=== PATIENT | male | born 1940 | race Caucasian/White ===

== ENCOUNTER 2020-05-26 08:55 | Outpatient (REF) | payer MEDICARE, SELFPAY ==
[2020-05-26 11:17] LABS: Hematocrit 38.7 % (42-52); Hemoglobin 12.6 g/dl (14.0-18.0); Mean Corpuscular HGB Conc 32.6 g/dl (31.0-36.0); Mean Corpuscular Volume 92.1 fL (80-98); Mean Platelet Volume 12.8 fL (9.4-12.4); Platelet Count 147 X10*3/uL (160-400); Red Cell Distribution Width 13.8 % (11.0-16.0); White Blood Count 4.6 X10*3/uL (4.8-10.8)
[2020-05-26 11:59] LABS: Alanine Aminotransferase 15 U/L (0-40); Albumin Level 3.7 g/dL (3.5-5.0); Alkaline Phosphatase 55 U/L (39-117); Anion Gap 10 (12-20); Aspartate Amino Transferase 20 U/L (5-37); Bilirubin Total 0.5 mg/dL (0.0-1.0); Blood Urea Nitrogen 23 mg/dL (9-16); Calcium 8.8 mg/dL (8.4-10.2); Carbon Dioxide 27 mmol/L (22-29); Chloride 104 mmol/L (96-108); Estimated Glomerular Filt Rate 57; Glucose Random 91 mg/dL (60-115); Potassium 4.2 mmol/l (3.3-5.1); Sodium 137 mmol/L (135-145); Total Protein 5.9 g/dL (6.5-8.0)
[2020-05-26 12:21] LABS: Vitamin D 25-OH Total 36.6 ng/mL (>30)
== END 2020-05-26 08:56 | disposition home or self-care (01) ==
LOC: HO.MANLDS 08:55
PROVIDERS: PCP Internal Medicine; Visit Provider Internal Medicine
DX: E55.9 Vitamin D deficiency, unspecified (principal); I10 Essential (primary) hypertension
CPT/HCPCS: 36415; 80053; 82306; 85027

== ENCOUNTER 2022-05-28 09:25 | Outpatient (REF) | payer MEDICARE, SELFPAY ==
[2022-05-28 11:36] LABS: MANUAL DIFF FLAG NO
[2022-05-28 11:59] LABS: Basophils Percent Auto 0.8 % (0-2); Eosinophils Absolute Auto 0.2 X10*3/uL (0.0-0.4); Eosinophils Percent Auto 3.8 % (0-4); Hematocrit 36.1 % (42.0-52.0); Hemoglobin 12.3 g/dl (14.0-18.0); Imm Gran Abs Auto 0.01 X10*3/uL (0.00-0.03); Imm Gran Pct Auto 0.3 % (0.0-0.4); Lymphocytes Absolute Auto 0.8 X10*3/uL (1.2-4.9); Lymphocytes Percent Auto 19.6 % (20-40); Mean Corpuscular HGB Conc 34.1 g/dl (31.0-36.0); Mean Corpuscular Volume 90.9 fL (80.0-98.0); Mean Platelet Volume 13.4 fL (9.4-12.4); Monocytes Absolute Auto 0.3 X10*3/uL (0.1-1.2); Monocytes Percent Auto 7.7 % (2-11); Neutrophils Absolute Auto 2.7 x10*3/uL (2.0-8.3); Neutrophils Percent Auto 67.8 % (45-73); Platelet Count 122 X10*3/uL (160-400); Red Blood Count 3.97 X10*6/uL (4.60-5.80); Red Cell Distribution Width 15.3 % (11.0-16.0); White Blood Count 3.9 X10*3/uL (4.8-10.8)
[2022-05-28 12:33] LABS: Prostate Specific Antigen 0.56 ng/mL (<0.05-4.0); Thyroid Stimulating Hormone 1.95 uIU/mL (0.32-4.0); Vitamin D 25-OH Total 34.2 ng/mL (>30)
[2022-05-28 12:38] LABS: Vitamin B12 610 pg/mL (200-900)
[2022-05-28 12:46] LABS: Alanine Aminotransferase 16 U/L (0-40); Albumin Level 3.8 g/dL (3.5-5.0); Alkaline Phosphatase 64 U/L (39-117); Anion Gap 16 (12-20); Aspartate Amino Transferase 23 U/L (5-37); Blood Urea Nitrogen 21 mg/dL (9-16); Calcium 9.2 mg/dL (8.4-10.2); Carbon Dioxide 21 mmol/L (22-29); Chloride 103 mmol/L (96-108); Estimated Glomerular Filt Rate > 60; Glucose Random 101 mg/dL (60-115); Potassium 4.4 mmol/L (3.3-5.1); Sodium 136 mmol/L (135-145); Total Protein 6.1 g/dL (6.5-8.0)
== END 2022-05-28 09:26 | disposition home or self-care (01) ==
LOC: HO.MANLDS 09:25
PROVIDERS: Visit Provider Internal Medicine
DX: Z00.00 Encounter for general adult medical examination without abnormal findings (principal); Z12.5 Encounter for screening for malignant neoplasm of prostate
CPT/HCPCS: 36415; 80053; 82306; 82607; 84153; 84443; 85025

== ENCOUNTER 2022-12-28 10:01 | Outpatient (REF) | payer MEDICARE, SELFPAY ==
[2022-12-28 11:23] LABS: MANUAL DIFF FLAG NO
[2022-12-28 11:36] LABS: Basophils Percent Auto 0.6 % (0-2); Eosinophils Absolute Auto 0.2 X10*3/uL (0.0-0.4); Eosinophils Percent Auto 4.4 % (0-4); Hematocrit 36.3 % (42.0-52.0); Hemoglobin 12.3 g/dl (14.0-18.0); Imm Gran Abs Auto 0.01 X10*3/uL (0.00-0.03); Imm Gran Pct Auto 0.2 % (0.0-0.4); Lymphocytes Absolute Auto 0.9 X10*3/uL (1.2-4.9); Lymphocytes Percent Auto 17.6 % (20-40); Mean Corpuscular HGB Conc 33.9 g/dl (31.0-36.0); Mean Corpuscular Volume 88.5 fL (80.0-98.0); Monocytes Absolute Auto 0.4 X10*3/uL (0.1-1.2); Monocytes Percent Auto 8.4 % (2-11); Neutrophils Absolute Auto 3.4 x10*3/uL (2.0-8.3); Neutrophils Percent Auto 68.8 % (45-73); Platelet Count 129 X10*3/uL (160-400); Red Cell Distribution Width 14.4 % (11.0-16.0)
[2022-12-28 12:19] LABS: Alanine Aminotransferase 17 U/L (0-40); Albumin Level 3.6 g/dL (3.5-5.0); Alkaline Phosphatase 80 U/L (39-117); Anion Gap 9 (12-20); Aspartate Amino Transferase 23 U/L (5-37); Bilirubin Total 0.9 mg/dL (0.0-1.0); Blood Urea Nitrogen 23 mg/dL (9-16); Calcium 9.6 mg/dL (8.4-10.2); Carbon Dioxide 28 mmol/L (22-29); Chloride 101 mmol/L (96-108); Estimated Glomerular Filt Rate 59; Glucose Random 79 mg/dL (60-115); Iron 64 mcg/dL (45-160); Percent Iron Saturation 29 % (15-50); Potassium 4.3 mmol/L (3.3-5.1); Sodium 134 mmol/L (135-145); Total Iron Binding Capacity 218 mcg/dL (228-428); Total Protein 5.9 g/dL (6.5-8.0); Unsaturated Iron Binding 154 ug/dL
[2022-12-28 12:56] LABS: Ferritin 219 ng/mL (20-250); Folate > 20.0 ng/mL (> or = 4.0); Vitamin B12 742 pg/mL (200-900)
== END 2022-12-28 10:02 | disposition home or self-care (01) ==
LOC: HO.MANLDS 10:01
PROVIDERS: Visit Provider Physician Assistant
DX: I10 Essential (primary) hypertension (principal); D64.9 Anemia, unspecified
CPT/HCPCS: 36415; 80053; 82607; 82728; 82746; 83540; 85025

== ENCOUNTER 2023-01-04 | Outpatient (REF) | payer MEDICARE, SELFPAY ==
[2023-01-05 07:54] LABS: OBS1 NEGATIVE (NEGATIVE); OBS2 NEGATIVE (NEGATIVE); OBS3 NEGATIVE (NEGATIVE)
[2023-01-05 07:55] LABS: OBS Int Ctl Valid YES
== END 2023-01-04 00:01 ==
LOC: HO.MANLDS
PROVIDERS: Visit Provider Internal Medicine
DX: D64.9 Anemia, unspecified (principal)
CPT/HCPCS: 82270

== ENCOUNTER 2023-11-21 11:11 | Outpatient (REF) | payer MEDICARE, SELFPAY ==
[2023-11-21 14:13] LABS: Free T4 (Free Thyroxine) 0.87 ng/dL (0.71-1.85); Thyroid Stimulating Hormone 2.17 uIU/mL (0.32-4.0)
== END 2023-11-21 11:12 | disposition home or self-care (01) ==
LOC: HO.MANLDS 11:11
PROVIDERS: Visit Provider Physician Assistant
DX: Z79.899 Other long term (current) drug therapy (principal)
CPT/HCPCS: 36415; 84439; 84443

== ENCOUNTER 2024-11-06 11:37 | Outpatient (REF) | payer MEDICARE, SELFPAY ==
[2024-11-06 13:04] LABS: MANUAL DIFF FLAG NO
[2024-11-06 13:13] LABS: Basophils Percent Auto 0.5 % (0-2); Eosinophils Absolute Auto 0.1 X10*3/uL (0.0-0.4); Eosinophils Percent Auto 1.5 % (0-4); Hematocrit 38.5 % (42.0-52.0); Hemoglobin 13.4 g/dl (14.0-18.0); Imm Gran Abs Auto 0.02 X10*3/uL (0.00-0.03); Imm Gran Pct Auto 0.3 % (0.0-0.4); Lymphocytes Absolute Auto 1.3 X10*3/uL (1.2-4.9); Mean Corpuscular HGB Conc 34.8 g/dl (31.0-36.0); Mean Corpuscular Volume 91.9 fL (80.0-98.0); Monocytes Absolute Auto 0.6 X10*3/uL (0.1-1.2); Monocytes Percent Auto 9.4 % (2-11); Neutrophils Absolute Auto 3.9 x10*3/uL (2.0-8.3); Neutrophils Percent Auto 66.3 % (45-73); Platelet Count 162 X10*3/uL (160-400); Red Blood Count 4.19 X10*6/uL (4.60-5.80); Red Cell Distribution Width 15.4 % (11.0-16.0); White Blood Count 5.9 X10*3/uL (4.8-10.8)
[2024-11-06 14:05] LABS: Prostate Specific Antigen 0.64 ng/mL (<0.05-4.0)
[2024-11-06 14:20] LABS: Alanine Aminotransferase 19 U/L (0-40); Albumin Level 3.6 g/dL (3.5-5.0); Anion Gap 9 (12-20); Aspartate Amino Transferase 31 U/L (5-37); Bilirubin Total 0.8 mg/dL (0.0-1.0); Blood Urea Nitrogen 23 mg/dL (9-16); Calcium 9.3 mg/dL (8.4-10.2); Carbon Dioxide 25 mmol/L (22-29); Chloride 103 mmol/L (96-108); Estimated Glomerular Filt Rate 58; Glucose Random 81 mg/dL (60-115); Potassium 4.4 mmol/L (3.3-5.1); Sodium 133 mmol/L (135-145); Total Protein 6.3 g/dL (6.5-8.0)
--- OUTSIDE RECORDS SUMMARY | 2024-11-06 14:23 | XMS_ITS | Continuity of Care Document ---
Author Organization [facility], [facility] Address [address] [place] [address] [place] [address] Assessment No assessment recorded. Plan of Treatment Reminders Order Date Submit Date Provider Last Modified By Organization Details Last Modified Time Details Appointments ANNUAL EXAM 2024 11:00A M DR GERARDO Not available Not available Not available FOLLOW UP 15 20[address] GERARDO Not available Not available Not available ANNUAL EXAM 2025 11:30A M DR GERARDO Not available Not available Not available Lab CMP, serum or plasma 2024 025 [facility], [address] [place] [address], [id number], 11/06/2024 11:43:13 lipid panel, serum 2024 025 [facility], [address] [place] [address], [id number], 11/06/2024 11:43:12 CBC 2024 025 [facility], [address] [place] [address], [id number], 11/06/2024 11:43:13 TSH, serum or plasma 2024 025 [facility], [address] [place] [address], [id number], 11/06/2024 11:34:11 PSA, serum or plasma 2024 025 [facility], [address] [facility], [place], [address], 11/06/2024 11:43:13 Referral None recorded . Procedures None recorded . Surgeries None recorded . Imaging US, echocard iogram, transtho racic, complete , w/ color flow 2024 025 [email or web address] [facility], [address] [place], [address], 11/06/2024 13:48:00 Medication Orders None recorded . Patient TargetsNo targets recorded. Patient Instructions Encounter Date Encounter Id Patient Instructions Last Modified By Organization Details Last Modified Time 11/06/2024 [id number] gout: care instructions Not available 11/06/2024 11:32:30 pulse oximetry* Not available 11/06/2024 11:32:30 Reason for Referral None Reported. Results Created Date Observation Date Name Description Value Unit Range Abnormal Flag Note LastModifiedBy Organization Detail LastModifiedTime 11/07/1911/06/2024 pulse oxime try* Result 98 Not Available [facility] [address], [place], [address], 10/30/2024 08:18:46 Result Notes None recorded. Problems Name Problem SNOMED Code Status Onset Date Resolution Date Notes Provider Name and Address Organization Details Recorded Time Gastroes ophageal reflux disease without esophagi tis 158729927 Active 2018 Not Available [facility] 3 18:19:55 Primary erectile dysfunct ion 053547061 Active 2018 Not Available [facility] 18:19:55 Benign prostati c hyperpla eligio 446752239 Active 2018 Not Available [facility] 18:19:55 Impacted cerumen of bilatera l ears 86605943530 86045 Active 2022 Not Available [facility] 3 18:19:55 Anemia 510304868 Active 2022 Not Available [facility] 18:19:55 Atrial fibrilla tion 86845759 Active 2022 Not Available [facility] 3 18:19:55 Cough 46233197 Active 2022 Not Available [facility] 3 18:19:55 Depressi ve disorder 16792724 Active 2022 Not Available [facility] 18:19:55 Skin lesion 51748811 Active 2022 Not Available [facility] 3 18:19:55 Acute on chronic diastoli c heart failure 402842370 Active 2024 Joselito Gerardo, DO [address] [place], [address], [facility] 5 11:30:59 [facility] hyperten tatianna 48125235 Active 2017 Not Available [facility] 3 18:19:55 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 Procedures Surgical History Date Name Laterality Status Provider Name and Address Organization Details Recorded Time 05/15/20 24 Cerumen Removal completed NIECY TORRES [address] [place] [address], [phone], [facility] 05/15/2024 09:49:45 01/04/20 23 Cerumen Removal completed NIECY TORRES [address] [place], [address], [facility] 01/03/2023 11:05:04 08/13/19 23 Cerumen Removal completed NIECY TORRES [address] [place], [address], [facility] 08/13/2022 14:51:11 09/08/19 22 Cerumen Removal completed NIECY TORRES [address] [place], [address], [facility] 09/08/2021 10:03:53 07/11/20 20 Cerumen Removal completed NIECY TORRES [address] [place], [address], [facility] 07/11/2020 14:33:05 11/26/19 20 Cerumen Removal completed AUGUSTA Coronado [address] [place] [address], [phone], [facility] 11/26/2019 10:51:01 12/14/19 19 Cerumen Removal completed AUGUSTA Coronado [address] [place] [address], [phone], [facility] 12/13/2018 10:00:14 12/07/19 19 colonoscopy completed Joselito Gerardo DO [address] [place] [address], [phone], [facility] 12/08/2018 10:52:46 01/05/20 18 Cerumen Removal completed Mera AUGUSTA Sheikh [address] [place] [address], [phone], [facility] 01/04/2018 14:20:19 Imaging Results None recorded. Procedure Notes None recorded. Medical Equipment None Reported. Allergies No known drug allergies Medications Name Sig Start Date Stop Date Status Note LastModified by Organization Details LastModified Time losartan 50 mg tablet TAKE 2 TABLETS BY MOUTH EVERY DAY 11/06 completed Not Available Not Available Not Available nifedipine ER 30 mg tablet,exte nded release 24 hr 07/13 completed Not Available Not Available Not Available atorvastati n 40 mg tablet TAKE 1 TABLET BY MOUTH EVERY DAY 03/14 completed Not Available Not Available Not Available buspirone 5 mg tablet TAKE 1 TABLET BY MOUTH EVERY DAY FOR 30 DAYS 2022 active Not Available Not Available Not Avai lable prednisone 10 mg tablet 4TABS DAILY X3 DAYS, 3TABS DAILY FOR 3DAYS, 2TABS EVERY DAY FOR 3 DAYS, 1TAB EVERY DAY FOR 3 DAYS 07/11 completed Not Available Not Available Not Available doxycycline hyclate 100 mg capsule Take 1 capsule twice a day by oral route for 7 days. 11/06 completed Not Available Not Available Not Available azithromyci n 250 mg tablet 01/30 completed Not Available Not Available Not Available diltiazem CD 180 mg capsule,ext ended release 24 hr TAKE 1 CAPSULE BY MOUTH EVERY DAY 10/29 completed Not Available Not Available Not Available amiodarone 200 mg tablet 11/20 completed Not Available Not Available Not Available diltiazem CD 240 mg capsule,ext ended release 24 hr TAKE 1 CAPSULE BY MOUTH EVERY DAY 07/11 completed Not Available Not Available Not Available fluorouraci l 5 % topical cream APPLY TO AFFECTED AREAS TWICE DAILY ON SCALP FOR 2 WEEKS. EXPECT REDNESS AND IRRITATIO N. 01/31 completed Not Available Not Available Not Available atenolol 25 mg tablet Take 1 tablet every day by oral route for 90 days. 01/13 completed Not Available Not Available Not Available amlodipine 2.5 mg tablet TAKE 1 TABLET DAILY AT SUPPER. DOSE DECREASE active Not Available Not Available No t Available chlorthalid one 25 mg tablet 07/07 completed Not Available Not Available Not Available terazosin 1 mg capsule TAKE 1 CAPSULE DAILY AT BEDTIME active Not Available Not Available No t Available amlodipine 5 mg tablet TAKE 1 TABLET BY MOUTH EVERY DAY active Not Available Not Available No t Available sildenafil 100 mg tablet Take 1 tablet by oral route as needed for 6 days. 07/11 completed Not Available Not Available Not Available triamcinolo ne acetonide 0.1 % topical cream APPLY THIN COAT TO AFFECTED AREA TWICE A DAY active Not Available Not Available No t Available spironolact one 25 mg tablet Take 0.5 tablets every day by oral route. active Not Available Not Available No t Available amoxicillin 875 mg tablet TAKE 1 TABLET BY MOUTH TWICE A DAY UNTIL FINISHED active Not Available Not Available No t Available magnesium oxide 400 mg (241.3 mg magnesium) tablet Take 1 tablet every day by oral route for 30 days. 09/19 completed Not Available Not Available Not Available terazosin 2 mg capsule TAKE 1 CAPSULE DAILY 01/13 completed Not Available Not Available Not Available meclizine 25 mg tablet 11/19 completed Not Available Not Available Not Available cephalexin 500 mg capsule TAKE 1 CAPSULE BY MOUTH TWICE A DAY FOR 5 DAYS WITH FOOD AND GLASS OF WATER. 04/12 completed Not Available Not Available Not Available lisinopril 10 mg tablet TAKE 1 TABLET BY MOUTH EVERY DAY 07/11 completed Not Available Not Available Not Available nitroglycer in 0.4 mg sublingual tablet PLEASE SEE ATTACHED FOR DETAILED DIRECTION S active Not Available Not Available No t Available omeprazole 20 mg capsule,del ayed release TAKE 1 CAPSULE DAILY active Not Available Not Available No t Available diltiazem CD 120 mg capsule,ext ended release 24 hr TAKE 1 CAPSULE BY MOUTH EVERY DAY 07/11 completed Not Available Not Available Not Available allopurinol 300 mg tablet TAKE 1 TABLET DAILY active Not Available Not Available No t Available furosemide 20 mg tablet 1 TABLET BY MOUTH DAILY 03/14 completed Not Available Not Available Not Available losartan 100 mg tablet TAKE 1 TABLET DAILY active Not Available Not Available No t Available doxycycline hyclate 100 mg tablet TAKE 1 TABLET BY MOUTH TWICE A DAY X 7 DAYS WITH FOOD AND A GLASS OF WATER 05/15 completed Not Available Not Available Not Available oxycodone 5 mg tablet TAKE 1 2 TABLETS BY MOUTH EVERY 4 HOURS NEEDED FOR MODERATE PAIN. 10/29 completed Not Available Not Available Not Available magnesium 200 mg tablet Take 1 tablet every day by oral route. 12/18 completed Not Available Not Available Not Available eplerenone 25 mg tablet TAKE ONE TAB QD PO active Not Available Not Available No t Available amiodarone 100 mg tablet TAKE 1 TABLET DAILY active Not Available Not Available No t Available tadalafil 20 mg tablet Take 1 tablet every day by oral route for 30 days. active Not Available Not Available No t Available Aleve 2 tablets qd 01/31 completed Not Available Not Available Not Available multivitami n qd active Not Available Not Available Not Available Eliquis 5 mg tablet TAKE 1 TABLET TWICE A DAY active Not Available Not Available No t Available Farxiga 10 mg tablet TAKE ONE TAB QD PO active Not Available Not Available No t Available Fish Oil 1,000 mg (120 mg-180 mg) capsule Take 1 capsule every day by oral route. active Not Available Not Available No t Available Vyndamax 61 mg capsule TAKE ONE CAP PO QD active Not Available Not Available No t Available Vitals Date Recorded Body height Body mass index (BMI) Body weight Heart rate Oxygen saturation Oxygen saturation in Arterial blood by Pulse oximetry Systolic blood pressure Diastolic blood pressure Provider Name and Address Organization Details Last Updated DateTime 5 170.18 cm 30.4 kg/m2 81871.9 2 g 53 /min 98 % 98 % 130 mm[Hg] 78 mm[Hg] [facility] 5 11:07:25 Social History Question Answer Notes LastModified by [facility] Details LastModified Time Tobacco Smoking Status Former Smoker Not Available Former[facility] 05/27/2020 03:36:24 What Is Your Level Of Alcohol Consumption? Moderate 7-8 Drinks Per Week [id number] Information not available 05/27/2020 What Is Your Level Of Caffeine Consumption? Moderate 3 Cups Coffee Per Day [id number] Information not available 05/27/2020 What Was The Date Of Your Most Recent Tobacco Screening? 11/06/2024 [email or web address] Information not available 11/06/2024 How Many Years Have You Smoked Tobacco? 14 [id number] Information not available 05/27/2020 Do You Or Have You Ever Used Any Other Forms Of Tobacco Or Nicotine? No [email or web address] Information not available 01/03/2023 Sex: Unknown Functional Status Question Answer Note LastModified by [facility] [facility] Details LastModified Time What is your exercise level? Occasional golfing, gym 3 days per week [id number] Information not available 05/27/2020 Mental Status None recorded. Family History Nothing Reported. Medical History No medical history recorded. Immunizations Vaccine Type Date Status Note Provider Nam e and Address Organization Details Recorded Time COVID-19, mRNA, LNP-S, PF, 30 mcg/0.3 mL dose 04/30/2021 completed Not Available [facility] 3 18:19:56 COVID-19, mRNA, LNP-S, PF, 30 mcg/0.3 mL dose 09/05/2020 completed Not Available [facility] 3 18:19:56 COVID-19, mRNA, LNP-S, PF, 30 mcg/0.3 mL dose 08/29/2020 completed Not Available [facility] 18:19:56 Tdap 07/30/2015 completed Not Available [facility] 04/25/2023 18:19:56 Past Encounters Encounter ID Performer Location Encounter Start Date Encounter Closed Date Diagnosis/Indication Diagnosis SNOMED-CT Code Diagnosis ICD10 Code Diagnosis Note [id number] DO [facility] [address],[place] [address] 11/06/2024 10:58:30 11/06/2024 13:47:59 Active or passive immunization 592279930 Z23 utd Adult heal th examination 601271581 Z00.00 doing well no major issues and is quite activeslee ps well appetite goodvision and hearing are fair Atrial fibrillation 4943 6004 I48.0 I48.91 stable and no palpitatio ns currently in nsr priorhe is controlled but with a high pulse in the 80-90's and he is usu in the 50's all his life (at least 20 yrs)his fatigue and dyspnea are prob multifacto rial including interferen ce from medication and or a uncontrole d pulsehe is also quite orthostati c upon arising and is on 4 bp meds including 2 diureticsi told him to review this with his cardiolois t next week and if this is not resolved then we will adjust his medication to get him feeling better . Depressive disorder 3548 9007 F32.0 negative Essential hypertension 72283672 I10 stable and occ has some lightheade dness can occur usually in the afternoon Gout 98289284 M10.00 doing well with no issues and no bouts of attacks need uric acids Acute on c hronic diastolic heart failure 150012103 I50.33 stable an no issues Health Concerns Section Related Observation LastModified by Organization Detai ls LastModified Time None Recorded Concern Status LastModified by Organization Details LastModified Time None Recorded Payers Encounter Date Sequence Insurance Name Policy Number Policy Hazel Covered Member ID Hazel Member ID Guarantor Name 11/06/2024 1 [facility] [id number] Bowen Martin [id number] Bowen Martin Notes Date Note Type Note Provider Name and Address Organization Details Recorded Time 5 text/htm l Annual WellnessReported bypatient.Diet and Nutrition:healthy diet Fracture Risk:no history of fractures; no recent explained fracture; no sudden unexplained fractures; no previous musculoskeletal injuries Physical Activity:exercises on a regular basis; recent increase in physical activity; good physical condition Additional Lifestyle Factors:no tobacco use; no alcohol intake; stopped drinking alcohol Depression Risk:never feels sad, empty, or tearful; no loss of interest in activities; no significant changes in weight; no sleep disturbances or insomnia; no agitation; no loss of energy; no feelings of worthlessness or guilt; no thoughts of suicide; no history of depression; no history of mood disorders Hearing:no loss of hearing Vision:no vision problemsNotes:doing well and is still quite active relates that he has been noticing sob with exertion seems a bit more prominent lately but no cp no resting sob no palpitationsCare Management - Anxiety/DepressionReport ed bypatient.Severity:denie s suicidal ideations; able to maintain relationships; does not interfere with activities of daily living Context:no major life stressors Associated Symptoms:denies homicidal ideations; no significant weight gain; no significant weight loss; no visual/auditory hallucinations; no delusions; no shortness of breath; mood good; no anxiety; no crying spells; no panic; no isolation; sleeping well; appetite appropriate; energy appropriate; no apathy; maintaining functionalityCare Management - Atrial FibrillationReported bypatient.Medications:co mpliant with medication Prior Imaging:echocardiogram; recent ECG Associated Symptoms:no dizziness; no chest pain; no easy bruisability; no rapid heart rateCare Management - HypertensionReported bypatient.Self Care:not under emotional stress Severity:symptoms are improving; does not interfere with daily activities Associated Symptoms:no dizziness; no lightheadedness; no chest pain; no shortness of breath; no palpitations; no edema; no calf muscle cramps; no blurred vision; no confusion; no headaches; no fatigue Joselito Gerardo, DO [address] [facility], [place], [address], [facility] 11/06/2024 11:35:22
--- OUTSIDE RECORDS SUMMARY | 2024-11-06 14:24 | XMS_ITS | Data Portability ---
Author Organization [facility] Service Address [address] [place] [address] Assessment Encounter Date Assessment Date Assessment LastModified by Organization Details LastModified Time 01/31/2023 01/31/2023 [address] [place] [address] (STRATEGIC ACCOUNT MANAGER) MDM MODERATE MUST MEET 2 OUT OF 3 ELEMENTS: PROBLEMS, DATA OR RISK ELEMENT 1: PROBLEMS ADDRESSED 1 OR MORE CHRONIC ILLNESS WITH EXACERBATION OR 2 OR MORE STABLE CHRONIC ILLNESSES OR 1 UNDIAGNOSED NEW PROBLEM OR 1 ACUTE ILLNESS W/SYMPTOMS OR 1 ACUTE COMPLICATED INJURY ELEMENT 2: DATA MUST MEET 1 OF 3 CATEGORIES CATEGORY 1: REVIEW OF PRIOR EXTERNAL NOTES, REVIEW OF RESULTS, ORDERING OF EACH TEST, ASSESSMENT REQUIRING INDEPENDENT HISTORIAN OR CATEGORY 2: INDEPENDENT INTERPRETATION OF TESTS BY ANOTHER PHYSICIAN OR SPECIALIST OR CATEGORY 3: DISCUSSION OF MGT OR TEST INTERPRETATION W/EXTERNAL PHYSICIAN OR SPECIALIST ELEMENT 3: RISK RISK OF COMPLICATIONS AND/OR MORBIDITY OR MORTALITY OF PATIENT MANAGEMENT PROVIDER MUST THOROUGHLY DOCUMENT EACH ELEMENT THAT IS COVERED Not available 01/31/2023 11:39:39 Plan of Treatment Reminders Order Date Submit Date Provider Last Modified By Organization Details Last Modified Time Details Appointments ANNUAL EXAM 2024 11:00A M DR GERARDO Not available Not available Not available FOLLOW UP 15 2024 09:30A M DR GERAROD Not available Not available Not available ANNUAL EXAM 2025 11:30A M DR GERARDO Not available Not available Not available Lab CMP, serum or plasma 2024 025 [facility], [address] [place] [address], [place], [address], 11/06/2024 11:43:13 lipid panel, serum 2024 025 [facility], [address] [place] [address], [place], [address], 11/06/2024 11:43:12 CBC 2024 025 [facility], [address] [place] [address], [address], 11/06/2024 11:43:13 TSH, serum or plasma 2024 025 [facility], [address] [place] [address], [address], 11/06/2024 11:34:11 PSA, serum or plasma 2024 025 [facility], [address] [place] [address], [address], 11/06/2024 11:43:13 TSH + free T4, serum 2023 024 [facility], [address] [place] [address], [address], 11/22/2023 11:25:47 Referral None recorded. Procedures None recorded. Surgeries None recorded. Imaging US, echocardi ogram, transthor acic, complete, w/ color flow 2024 025 [facility], [address] [place], [address], 11/06/2024 13:48:00 Medication Orders buspirone 5 mg tablet 2022 023 [facility]acy #[id number], [address] [place], [address], 03/14/2023 09:38:29 triamcino lone acetonide 0.1 % topical cream 2022 023 [facility] #[id number], [address] [place], [address], 03/14/2023 09:41:00 Patient TargetsNo targets recorded. Patient Instructions Encounter Date Encounter Id Patient Instructions Last Modified By Organization Details Last Modified Time 01/31/2023 [id number] high blood pressure: care instructions Not available 01/31/2023 11:49:43 learning about high blood pressure Not available 01/31/2023 11:49:43 pulse oximetry* Not available 01/31/2023 11:49:43 03/14/2023 [id number] pulse oximetry* [email or web address] Not available 03/14/2023 09:38:26 11/06/2024 [id number] gout: care instructions Not available 11/06/2024 11:32:30 pulse oximetry* Not available 11/06/2024 11:32:30 Reason for Referral None Reported. Results Created Date Observation Date Name Description Value Unit Range Abnormal Flag Note LastModifiedBy Organization Detail LastModifiedTime 02/01/2001/31/2023 pulse oxime try* Result 98 Not Available [facility] [address] [place] [address] [address] , [place], [address], 01/31/2023 09:44:04 03/14/20 23 03/14/2023 pulse oxime try* Result 99 Not Available [facility] [address] [place] [address], [place], [address], 03/09/2023 07:08:40 11/07/19 25 11/06/2024 pulse oxime try* Result 98 Not Available [facility] [address] [place] [address], [place], [address], 10/30/2024 08:18:46 01/13/20 23 01/09/2023 imagi ng/di agnos tic resul t No observ ation record ed. [email or web address] Not Available 2022 10:29:03 05/08/20 24 05/02/2024 colon oscop y proce dure (PROC ) No observ ation record ed. [email or web address] Not Available 2023 15:03:49 Result Notes None recorded. Problems Name Problem SNOMED Code Status Onset Date Resolution Date Notes Provider Name and Address Organization Details Recorded Time Gastroes ophageal reflux disease without esophagi tis 084454678 Active 2018 Not Available [facility] 3 18:19:55 Primary erectile dysfunct ion 965262442 Active 2018 Not Available [facility] 3 18:19:55 Benign prostati c hyperpla eligio 427428160 Active 2018 Not Available [facility] 3 18:19:55 Impacted cerumen of bilatera l ears 72239582759 63039 Active 2022 Not Available [facility] 3 18:19:55 Anemia 271932267 Active 2022 Not Available [facility] 3 18:19:55 Atrial fibrilla tion 33498542 Active 2022 Not Available [facility] 3 18:19:55 Cough 63562056 Active 2022 Not Available [facility] 3 18:19:55 Depressi ve disorder 32799484 Active 2022 Not Available [facility] 3 18:19:55 Skin lesion 59393309 Active 2022 Not Available [facility] 3 18:19:55 Acute on chronic diastoli c heart failure 685779782 Active 2024 Joselito Gerardo, DO [address] [place] [address], [id number] [place] [address] Internal Medicine 5 11:30:59 [facility] hyperten tatianna 78111355 Active 2017 Not Available [facility] 3 18:19:55 Osteoart hritis 417859383 Active 2017 with knee replaceme nt 2011 Not Available [facility] 3 18:19:55 Umbilica l hernia 241792748 Active 2017 Not Available [facility] 3 18:19:55 Sensorin eural hearing loss 40486567 Active 2017 Not Available [facility] 3 18:19:55 Atherosc lerosis Active 2017 Not Available [facility] 3 18:19:55 Gout 97372041 Active 2017 Not Available [facility] 3 18:19:55 Notes:Mild thrombocytopenia Problem Notes None recorded. Procedures Surgical History Date Name Laterality Status Provider Name and Address Organization Details Recorded Time 05/15/20 24 Cerumen Removal completed NIECY TORRES [address] [place] [address], [phone], [facility] 05/15/2024 09:49:45 01/04/20 23 Cerumen Removal completed NIECY TORRES [address] [place] [address], [phone], [facility] 01/03/2023 11:05:04 08/13/19 23 Cerumen Removal completed NIECY TORRES [address] [place] [address], [phone], [facility] 08/13/2022 14:51:11 09/08/19 22 Cerumen Removal completed NIECY TORRES [address] [place] [address], [phone], [facility] 09/08/2021 10:03:53 07/11/20 20 Cerumen Removal completed NIECY TORRES [address] [place] [address], [phone], [facility] 07/11/2020 14:33:05 11/26/19 20 Cerumen Removal completed AUGUSTA Coronado [address] [place] [address], [phone], [facility] 11/26/2019 10:51:01 12/14/19 19 Cerumen Removal completed AUGUSTA Coronado [address] [place] [address], [address], [facility] 12/13/2018 10:00:14 12/07/19 19 colonoscopy completed Joselito Gerardo DO [address] [place] [address], [phone], [facility] 12/08/2018 10:52:46 01/05/20 Cerumen Removal completed October AUGUSTA Sheikh [address] [facility], [place], [address], [facility] 01/04/2018 14:20:19 Imaging Results Imaging Date Name Status LastModified by Organiz ation Details LastModified Time 01/09/2023 imaging/diagnos tic result completed [email or web address] Information not available 01/12/2023 10:29:03 05/02/2024 colonoscopy procedure (PROC) completed [email or web address] Information not available 05/08/2024 15:03:49 Procedure Notes None recorded. Medical Equipment None [...] and Address Organization Details Last Updated DateTime 3 170.18 cm 31.4 kg/m2 30342.2 7 g 77 /min 98 % 98 % 118 mm[Hg] 70 mm[Hg] Joselito Gerardo, DO [address] [place], [address] [place] [address] Internal Medicine 3 11:15:53 Date Recorded Body height Body mass index (BMI) Body weight Heart rate Oxygen saturation Oxygen saturation in Arterial blood by Pulse oximetry Systolic blood pressure Diastolic blood pressure Provider Name and Address Organization Details Last Updated DateTime 3 170.18 cm 30.5 kg/m2 64834.0 8 g 85 /min 97 % 97 % 94 mm[Hg] 58 mm[Hg] NIECY TORRES [address] [place], [address] 3 09:21:57 Date Recorded Body height Body mass index (BMI) Body weight Heart rate Oxygen saturation Oxygen saturation in Arterial blood by Pulse oximetry Systolic blood pressure Diastolic blood pressure Provider Name and Address Organization Details Last Updated DateTime 4 170.18 cm 30.4 kg/m2 93675.9 2 g 54 /min 98 % 98 % 118 mm[Hg] 70 mm[Hg] NIECY TORRES [address] [place], [address], [facility] 4 10:30:25 Date Recorded Body height Body mass index (BMI) Body weight Heart rate Oxygen saturation Oxygen saturation in Arterial blood by Pulse oximetry Systolic blood pressure Diastolic blood pressure Provider Name and Address Organization Details Last Updated DateTime 5 170.18 cm 30.4 kg/m2 82125.9 2 g 53 /min 98 % 98 % 130 mm[Hg] 78 mm[Hg] Giana Felix [facility] 5 11:07:25 Social History Question Answer Notes LastModified by [employer] Details LastModified Time Tobacco Smoking Status Former Smoker Not Available [facility] 05/27/2020 03:36:24 What Is Your Level Of Alcohol Consumption? Moderate 7-8 Drinks Per Week [id number] Information not available 05/27/2020 What Is Your Level Of Caffeine Consumption? Moderate 3 Cups Coffee Per Day [id number] Information not available 05/27/2020 What Was The Date Of Your Most Recent Tobacco Screening? 11/06/2024 [email or web address] Information not available 11/06/2024 How Many Years Have You Smoked Tobacco? 14 [id number] Information not available 05/27/2020 Do You Or Have You Ever Used Any Other Forms Of Tobacco Or Nicotine? No Information not available 01/03/2023 Sex: Unknown Functional Status Question Answer Note LastModified by [employer] Details LastModified Time What is your exercise level? Occasional golfing, gym 3 days per week [id number] Information not available 05/27/2020 Mental Status None recorded. Family History Nothing Reported. Medical History No medical history recorded. Immunizations Vaccine Type Date Status Note Provider Nam e and Address Organization Details Recorded Time COVID-19, mRNA, LNP-S, PF, 30 mcg/0.3 mL dose 04/30/2021 completed Not Available [facility] 3 18:19:56 COVID-19, mRNA, LNP-S, PF, 30 mcg/0.3 mL dose 09/05/2020 completed Not Available [facility] 3 18:19:56 COVID-19, mRNA, LNP-S, PF, 30 mcg/0.3 mL dose 08/29/2020 completed Not Available [facility] 3 18:19:56 Tdap 07/30/2015 completed Not Available [facility] 04/25/2023 18:19:56 Past Encounters Encounter ID Performer Location Encounter Start Date Encounter Closed Date Diagnosis/Indication Diagnosis SNOMED-CT Code Diagnosis ICD10 Code Diagnosis Note [id number] October AUGUSTA Sheikh [facility] [address] [facility], [place] [address] 01/04/2018 13:43:21 01/04/2018 14:30:50 Impacted cerumen 72430637 H61.23 successful f/u as needed Essential hypertension 86978593 I10 good today on current regimen Gout 67905438 M10.9 stable on allopurino l [id number] Joselito Gerardo [facility] [address] [facility], [place] [address] 01/30/2018 10:39:30 01/30/2018 11:52:01 Essential hypertension 48456352 I10 stable doing well no major issues Gastroesop hageal reflux disease 650338895 K21.9 Gout 91246398 M10.9 alsquiet no isssues whiler on allopurino l; [id number] Joselito Gerardo [facility] [address] [facility], [email or web address] [address] 08/02/2018 08:58:58 08/02/2018 19:30:21 Essential hypertension 53751773 I10 stable doing well no major issues Gout 34131103 M10.9 doing well with no issues and no bouts of attacksnee d uric acid s disabled : , root : null, macros : null, spellchec k : , can_dicta te : , hidden : { classes : note unstructur ed-goal }, placehold er_element : null, placehold er_text : Add note , input : null, maxlength : , hardlimit : , hidecount : , value : } data-spell check= class= adilson h-text-con tainer autostart expanding- textarea rich-text- container note-field -wrapper > quiet no isssues whiler on allopurino l; [id number] Joselito Gerardo [facility] [address] [facility], [email or web address] [address] 09/01/2018 11:56:51 09/01/2018 13:03:32 Left inguinal hernia 724301681 K40.90 will refer for a opinion from general surgeon he will be going to [place] in September so any procedure will have to be done in october Chery Amador NP, S [facility] [address] [facility],[email or web address] [address] 10/31/2018 11:28:29 10/31/2018 13:42:24 Cough 36777981 R05 Essential hypertension 39929834 I10 stable October [address] [facility] [address] [facility],[place] [address] 12/13/2018 09:27:45 12/13/2018 09:59:20 Gout 44589883 M10.9 stable on allopurino l Essential hypertension 87508153 I10 good today on current regimen Gastroesop hageal reflux disease without esophagitis 261369245 K21.9 QUIET Impacted c erumen of bilateral ears 3742899835 502925 H61.23 RESOLVED Decreased hearing 138678 001 H91.93 GREATLY IMPROVED [id number] Joselito Gerardo DO [facility] [address] [facility] [address] [address] 04/17/2019 10:55:05 04/17/2019 11:48:57 Adult health examination 411692382 Z00.00 doing well Active or passive immunization 271821606 Z23 [id number] Joselito Gerardo [facility] [address] [place] [address] 07/30/2019 10:00:52 07/30/2019 10:49:35 Nocturnal muscle cramp 0899324143 50270 G47.62 R gastrocnem ius muscle ongoing for 1 mo nightly Will try 400 mg mag and try to hydrate/st retching more throughout day Osteoarthritis 230706928 M19.90 Currently well managed - going to gym regularly Essential hypertension 38471225 I10 stable doing well no major issues One possible hypotensiv e episode Will call if this recurs and make sure to hydrate [id number] Joselito Gerardo DO [facility] [address] [place] [address] 09/05/2019 08:57:38 09/05/2019 10:05:37 Restless legs 96377215 G25.81 Is much improved with mag Will restart mag if sx return Anemia 041498705 D64.9 Found on repeat CBC Will check iron and B-12 Given occult stool cards and will recheck [id number] Joselito Gerardo [facility] [address] [facility],[place] [address] 09/11/2019 10:33:52 09/11/2019 11:16:00 Anemia 767622334 D64.9 Found on repeat CBC Will check iron and B-12 Given occult stool cards and will recheck [id number] AUGUSTA Coronado [facility] [address] [facility],[place] [address] 09/19/2019 10:58:06 09/19/2019 11:41:53 Essential hypertension 86406536 I10 elevated will increase losartan continue atenolol 25 mg 1/2 tablet recheck BP in november 06 Gout 33802551 M10.9 stable on allopurino l Gastroesop hageal reflux disease without esophagitis 239667841 K21.9 QUIET Osteoarthritis 246917136 M19.90 takes aleve daily for the last 20-30 years try to take once a day or less frequently if able or as needed Infected insect bite 262 433095 L08.9 [id number] Joselito Gerardo [facility] [address] [place] [address] 11/07/2019 09:14:11 11/07/2019 11:42:51 Essential hypertension 97778124 I10 stable doing well no major issues One possible hypotensiv e episode Will call if this recurs and make sure to hydrate Gout 53136363 M10.9 doing well with no issues and no bouts of attacksnee d uric acids disabled : , root : null, macros : null, spellchec k : , can_dicta te : , hidden : { classes : note unstructur ed-goal }, placehold er_element : null, placehold er_text : Add note , input : null, maxlength : , hardlimit : , hidecount : , value : } data-spell check= class= adilson h-text-con tainer autostart expanding- textarea rich-text- container note-field -wrapper > quiet no issues while on allopurino l; Atherosclerosis 12014396 I70.90 quiet and is doing well Gastroesop hageal reflux disease without esophagitis 092026893 K21.9 quiet and is doing well with omeprazole [id number] AUGUSTA Coronado [facility] [address] [place] [address] 11/26/2019 10:13:17 11/26/2019 11:03:36 Impacted cerumen of bilateral ears 1863481112 704178 H61.23 RESOLVED AFTER IRRIGATION Decreased hearing 740894 001 H91.93 GREATLY IMPROVED AFTER IRRIGATION Essential hypertension 94135261 I10 well controlled Sensorineu ral hearing loss 05545738 H90.5 in left [id number] Joselito Gerardo [facility] [address] [place] [address] 11/30/2019 09:58:33 11/30/2019 11:00:20 Essential hypertension 38008221 I10 stable doing well no major issues One possible hypotensiv e episode Will call if this recurs and make sure to hydrate Degenerati ve lumbar spinal stenosis 262142743 M48.061 with a radicuopat hy to the level of his calf prob L4-5 level [id number] Joselito Gerardo [facility] [address] [facility] [address],[place] [address] 12/19/2019 10:13:25 12/19/2019 10:46:08 Dyspnea on exertion 93618026 R06.09 i believe this is due to thaddeus guerra as noted will be seeing dr hinds next week weds. will defer to him re whether we eval with ETT or card perfusion etc Lightheadedness 77459139 8 R42 occurs when getting up quickly otherwise doesnt bother will cont to hold and use lower dose with 50mg Degenerati on of lumbosacral intervertebral disc 25378461 M51.37 awaiting MRI [id number] NIECY TORRES [facility] [address] [facility] [email or web address] [address] 01/14/2020 15:29:24 01/14/2020 16:18:15 Spinal stenosis of lumbar region 31422325 M48.061 stable > will f/u as needed Degenerati on of lumbar intervertebral disc 47302611 M51.36 stable [id number] Joselito Gerardo [facility] Medicine [address] [facility],[place] [address] 02/06/2020 12:12:08 02/06/2020 13:28:14 Essential hypertension 01957508 I10 stable doing well no major issues Osteoarthritis 690229649 M19.90 Back OA has been worse last week with pain radiating into R LE MRI showed increased foramen stenosis and anterolist hesis Will refer to Dr. Hinton Treat with Pred taper [id number] NIECY TORRES [facility] [address] [facility] [address],[place] [address] 07/11/2020 14:12:45 07/11/2020 15:02:25 Impacted cerumen 12565441 H61.23 procedure went well will fu if he starts to notice issue again if fluid still a concern, try OTC antihistam ine Essential hypertension 72605747 I10 BP fine today [id number] NIECY TORRES [facility] [address] [facility],[place] [address] 07/28/2020 09:13:33 07/28/2020 13:52:07 Epidermoid cyst of skin 280275586 L72.3 the patient has a cyst/boil on his left ear will start with abx and recall for fu on tuesday or tuesday if no improvemen t will drain Toothache 92948992 K08.8 9 will have patient call his dentist for possible infection of upper right molars Essential hypertension 04082331 I10 BP [place], [place] [id number] NIECY TORRES [facility] [address] [facility],[place] [address] 08/05/2020 08:09:04 08/05/2020 12:00:26 Dental abscess 121009503 K04.7 following up with dental, abx he was on through did help Epidermoid cyst of skin 922447780 L72.3 will fu with us if derm is not able to do it or not able to do it in a timely manner [id number] Joselito Gerardo, [facility] [address] [facility], [place] [address] 08/26/2020 10:04:55 08/26/2020 14:14:27 Essential hypertension 76980681 I10 stable doing well no major issues Gastroesop hageal reflux disease without esophagitis 313346762 K21.9 quiet and is doing well with omeprazole Umbilical hernia 6972568 07 K42.9 will undergo surg repair this week Gout 54110728 M10.9 doing well with no issues and no bouts of attacksnee d uric acids disabled : , root : null, macros : null, spellchec k : , can_dicta te : , hidden : { classes : note unstructur ed-goal }, placehold er_element : null, placehold er_text : Add note , input : null, maxlength : , hardlimit : , hidecount : , value : } data-spell check= class= adilson h-text-con tainer autostart expanding- textarea rich-text- container note-field -wrapper > quiet no issues while on allopurino l; [id number] Joselito Gerardo [facility] [address] [facility] [address],[place] [address] 10/29/2020 10:12:20 10/29/2020 11:32:01 Essential hypertension 55597475 I10 stable doing well no major issues Sensorineu ral hearing loss 81950324 H90.5 will need and exam Urgent joe belén for stool 05698694 R15.2 possible reaction to diltiazem we will change the med to amlodipine and wait for input [id number] Joselito Gerardo DO [facility] [address] [facility] [place] [address] 11/19/2020 14:24:49 11/19/2020 15:09:01 Essential hypertension 12804236 I10 stable doing well no major issues Vertigo 566725072 R42 note he needs a new glasses as the ones he was given were wrong and eye dr felt that this was the prob reason Atherosclerosis 28834336 I70.90 quiet and is doing well Gout 86015443 M10.9 doing well with no issues and no bouts of attacks need uric acids Primary er ectile dysfunction 375556852 N52.9 [id number] Joselito Gerardo DO [facility] [address] [facility] [address],[place] [address] 12/02/2020 09:28:23 12/02/2020 10:58:13 Active or passive immunization 998719711 Z23 utd Adult heal th examination 031837543 Z00.00 doing well no major issues and is quite active [id number] NIECY TORRES [facility] [address] [facility] [address] [address] [place] [facility] [place] [address] 04/24/2021 09:20:41 04/24/2021 14:57:28 Exposure to SARS-CoV-2 388671815 Z20.822 will fu with order for testing at [facility] [id number] Joselito Gerardo DO [facility] [address] [facility] [address],[place] [address] 07/07/2021 08:09:31 07/07/2021 09:53:15 Essential hypertension 70237278 I10 has had musltiple med changes and now on nifedipine , spironolac t, losartan and his sbp is running in the low 90's i recc he cut the losartan in half and he states he will talk to cardiology firsttold him to get back [facility] had lab done 1 week ago and asked him to have cardio send to us. Atherosclerosis 89092691 I70.90 quiet and is doing well [id number] NIECY TORRES [facility] [address] [facility] [address],[place] [address] 09/08/2021 09:24:27 09/08/2021 10:27:58 Impacted cerumen [id number] H61.23 procedure went well will fu if he starts to notice issue again [id number] Joselito Gerardo DO [facility] [address] [facility] [address],[place] [address] 04/12/2022 10:57:46 04/12/2022 12:32:32 Active or passive immunization [id number] Z23 utd Adult heal th examination [id number] Z00.00 doing well no major issues and is quite active Essential hypertension [id number] Chas0 has had multiple med changes and now on nifedipine , spironolac t, losartan and his sbp is running in the low 90's i recc he cut the losartan in half and he states he will talk to cardiology firsttold him to get back to [facility] lab done 1 week ago and asked him to have cardio send to us. Gastroesop hageal reflux disease without esophagitis [id number] K21.9 quiet and is doing well with omeprazole Gout 07669206 M10.9 doing well with no issues and no bouts of attacks need uric acids Sensorineu ral hearing loss 85520329 H90.5 will need and exam Atherosclerosis 81118370 I70.90 quiet and is doing well [id number] NIECY TORRES [facility] [address] [facility] [address],[place] [address] 08/13/2022 14:27:07 08/13/2022 15:23:33 Essential hypertension 21475150 I10 will set up standing Impacted c erumen of bilateral ears [id number] 635476 H61.23 resolved with lavage [id number] NIECY TORRES [facility] [address],[place] [address] 01/03/2023 10:26:14 01/03/2023 11:17:48 Impacted cerumen of bilateral ears [id number] 577647 H61.23 resolved with lavage [id number] Joselito Gerarod DO [facility] [address] [facility] [address] [address] 01/31/2023 11:11:37 01/31/2023 11:59:46 Anemia 610727353 D64.9 Found on repeat CBCbut has been stable Atrial fibrillation 4943 6004 I48.91 he is controlled but with a high pulse [...] medication to get him feeling better . Advance care planning 71 0513580 Z71.89 utd Cough 80861364 R05.9 unsure if this is medication related but is certainly present throughout the dayposs allergy? ears feel plugged too Essential hypertension 91205055 I10 he is clearly having orthostati c symptoms and is on 4 bp meds this will need to be adjusted if the cardiol does not [id number] NIECY TORRES [facility] [address] [facility] [address] [facility] [address] 03/14/2023 09:16:33 03/14/2023 09:57:40 Atrial fibrillation 03484495 I48.0 stable Gastroesop hageal reflux disease without esophagitis 821219189 K21.9 stable Depressive disorder 3548 9007 F32.0 start on low dose busparsafe for heart Skin lesion 58677313 L98 .9 will set up with triamcinol one for two lesions on the skin [id number] NIECY TORRES [facility] [address] [facility],[place] [place] [address] 11/21/2023 10:25:05 11/21/2023 16:02:39 Long-term current use of amiodarone 0642656191 54479 Z79.899 agreed to TSH check since he has been on amiodarone Depressive disorder 3548 9007 F32.0 stable Atrial fibrillation 4943 6004 I48.0 I48.91 stablehad conversion ; hasn't had any issues Essential hypertension 56899492 I10 will set up standing Gout 53697026 M10.00 stable [id number] NIECY TORRES [facility] [address] [facility] [address] 05/15/2024 09:26:20 05/15/2024 14:22:45 Impacted cerumen of bilateral ears [id number] 607143 H61.23 resolved with lavage [id number] Joselito Gerardo, [facility] [address] [facility],[place] [address] 11/06/2024 10:58:30 11/06/2024 13:47:59 Active or passive immunization 418985483 Z23 utd Adult heal th examination 963079418 Z00.00 doing well no major issues and [...] disorder 3548 9007 F32.0 negative Essential hypertension 04776039 I10 stable and occ has some lightheade dness can occur usually in the afternoon Gout 96716887 M10.00 doing well with no issues and no bouts of attacks need uric acids Acute on c hronic diastolic heart failure 948393619 I50.33 stable an no issues Health Concerns Section Related Observation LastModified by Organization Detai ls LastModified Time None Recorded Concern Status LastModified by Organization Details LastModified Time None Recorded Advance Directives Directive None Recorded Payers Encounter Date Sequence Insurance Name Policy Number Policy Hazel Covered Member ID Hazel Member ID Guarantor Name 01/31/2023 1 [place] [id number] Bowen B Mario [id number] Bowen Mario 03/14/2023 1 [facility] [id number] Bowen B Mario [id number] Bowen Mario 11/21/2023 1 [place] [id number] Bowen B Mario [id number] Bowen Mario 05/15/2024 1 [facility] [id number] Bowen B Mario [id number] Bowen Mario 11/06/2024 1 [facility] [id number] Bowen B Mario [id number] Bowen Mario Notes Date Note Type Note Provider Name and Address Organization Details Recorded Time 3 text/htm l The patient denies recent falls or recurrent falls. Denies instability, weakness, abnormal gait, or difficulties with movement. The patient wears correct, supportive shoes and is not otherwise severely visually impaired. The patient is full weight bearing and if using the assistance of a cane or walker feels supported and stable with the use of such devices. All medical conditions have been taken into account that may pose a risk for the patient for falls. Home tresa, carpets and/or rugs do not pose a challenge for the patient. The patient has been educated about the use of vitamin D supplementation for bone health and prevention of hypotensive episodes that may increase risk for fall. All question and concerns were answered to the patient's satisfaction. here since hospitalization for afib he has afib with no evid of cad or chfrelates that he has been sob and also noted to be quite fatigued 'also he has siginif dizziness when getting uphe is now on 4 meds that can lower bp including furosemide, spirono, terazosin, and losartan Joselito Gerardo, DO [address] [facility], [place], [address], [facility] 01/31/2023 11:50:20 3 text/htm l Medicare Annual Wellness VisitReported bypatient.Diet and Nutrition:healthy diet; discussed vitamin and supplement use; discussed portion control; discussed maintaining calcium balance; discussed diet improvement Fracture Risk:no history of fractures; no recent explained fracture; no sudden unexplained fractures; no previous musculoskeletal injuries Physical Activity:exercises on a regular basis; recent increase in physical activity; good physical condition Depression Risk:never feels sad, empty, or tearful; no loss of interest in activities; no significant changes in weight; no sleep disturbances or insomnia; no agitation; no loss of energy; no feelings of worthlessness or guilt; no thoughts of suicide; no history of depression; no history of mood disorders Orientation:no disorientation to time; no disorientation to date; no disorientation to place Concentration and Memory:no decreased concentrating ability; no memory lapses or loss; does not forget words Speech/Motor difficulties:no speech difficulties; no difficulty expressing formulated concepts; no difficulty with fine manipulative tasks; no difficulty writing/copying; no slowed reaction time; does not knock things over when trying to pick them up Hearing:no loss of hearing Vision:no vision problems Activities of Daily Living:able to bathe with limited or no assistance; able to contol urination and bowels; able to dress with limited or no assistance; able to feed self with limited or no assistance; able to get out of chair or bed with limited or no assistance; able to groom with limited or no assistance; able to toilet with limited or no assistance Instrumental Activities of Daily Living:able to do house work with limited or no assistance; able to grocery shop with limited or no assistance; able to manage medications with limited or no assistance; able to manage money with limited or no assistance; able to prepare meals with limited or no assistance; able to use the phone with limited or no assistance Falls Risk Assessment:no frequent falls while walking; no fall in the past year; no fall since last visit; no dizziness/vertigo Home Safety:no unsafe tresa hazzards; no unsafe stairs; no unsafe gas appliances; working smoke/CO detectors; wears protective head gear for biking/high velocity; use of seatbelts; no vision or hearing loss while driving; no fire arms; has hand bars in the bathroom/shower; good lighting in the home BP is low with the medication adjustment for the afib he is very low in the office today as usualthe pt and I agreed to reduce his losartan the patient reports that he is getting an MRI in a few weeks had a cardio-conversion recently; had to have it done twice doing okay on the eliquisno side effects NIECY TORRES [address] [place], [address], [facility] 03/14/2023 09:51:08 4 text/htm l 6 mos f/u a. fib: stableneed TSH check due to use of thyroid HTN: today in the office the patient BP is 118/70 L arm sitting the patient is doing well on the BP medication with no side effects and no adjustment of their medications needed today at the appointment well-controlled on medication denies chest pain, sob, ankle swelling, orthopnea, palpitations depression: stable gout: stable NIECY TORRES [address] [place], [address], [facility] 11/21/2023 11:05:15 4 text/htm l ear lavage the patient is doing wellbilateral ear lavagemild impactiontolerated procedure wellTMs visualized NIECY TORRES [address] [place], [address], [facility] 05/15/2024 09:50:18 5 text/htm l Annual WellnessReported bypatient.Diet and [...] headaches; no fatigue Joselito Gerardo, DO [address] [place], [address], [facility] 11/06/2024 11:35:22
[2024-11-06 14:47] LABS: Thyroid Stimulating Hormone 2.75 uIU/mL (0.32-4.0)
[2024-11-06 17:31] LABS: Alkaline Phosphatase 78 U/L (39-117)
== END 2024-11-06 11:38 | disposition home or self-care (01) ==
LOC: HO.MANLDS 11:37
PROVIDERS: Visit Provider Internal Medicine
DX: Z00.00 Encounter for general adult medical examination without abnormal findings (principal); Z12.5 Encounter for screening for malignant neoplasm of prostate; I48.0 Paroxysmal atrial fibrillation; I10 Essential (primary) hypertension
CPT/HCPCS: 36415; 80053; 84153; 84443; 85025

== ENCOUNTER 2024-12-04 11:53 | Outpatient (REF) | payer MEDICARE, SELFPAY ==
[2024-12-04 13:07] LABS: MANUAL DIFF FLAG NO
[2024-12-04 13:14] LABS: Basophils Absolute Auto 0.1 X10*3/uL (0.0-0.2); Basophils Percent Auto 0.9 % (0-2); Eosinophils Absolute Auto 0.1 X10*3/uL (0.0-0.4); Eosinophils Percent Auto 1.6 % (0-4); Hematocrit 38.7 % (42.0-52.0); Hemoglobin 13.4 g/dl (14.0-18.0); Imm Gran Abs Auto 0.02 X10*3/uL (0.00-0.03); Imm Gran Pct Auto 0.3 % (0.0-0.4); Lymphocytes Absolute Auto 1.3 X10*3/uL (1.2-4.9); Lymphocytes Percent Auto 22.6 % (20-40); Mean Corpuscular HGB Conc 34.6 g/dl (31.0-36.0); Mean Corpuscular Hemoglobin 32.1 pg (27.0-33.0); Mean Corpuscular Volume 92.6 fL (80.0-98.0); Mean Platelet Volume 11.6 fL (9.4-12.4); Monocytes Absolute Auto 0.6 X10*3/uL (0.1-1.2); Monocytes Percent Auto 10.5 % (2-11); Neutrophils Absolute Auto 3.7 x10*3/uL (2.0-8.3); Neutrophils Percent Auto 64.1 % (45-73); Platelet Count 171 X10*3/uL (160-400); Red Blood Count 4.18 X10*6/uL (4.60-5.80); Red Cell Distribution Width 15.3 % (11.0-16.0); White Blood Count 5.8 X10*3/uL (4.8-10.8)
--- OUTSIDE RECORDS SUMMARY | 2024-12-04 13:18 | XMS_ITS | Data Portability ---
Author Organization [facility] Home Service Address [address] [place] [address] Assessment No assessment recorded. Plan of Treatment Reminders Order Date Submit Date Provider Last Modified By Organization Details Last Modified Time Details Appointments SDV 2024 11:30A M NIECY TORRES Not available Not available Not available FOLLOW UP 15 2024 09:30A M DR GERARDO Not available Not available Not available ANNUAL EXAM 2025 11:30A M DR GERARDO Not available Not available Not available Lab lipid panel, serum 2024 025 [facility], [address] [place] [address], [id number], 12/04/2024 12:03:20 CMP, serum or plasma 2024 025 [facility], [address] [place] [address], [address], 12/04/2024 12:03:20 CBC w/ auto diff 2024 025 [facility], [address] [place] [address], [address], 12/04/2024 12:03:20 CMP, serum or plasma 2024 025 [facility], [address] [place] [address], [address], 11/07/2024 12:13:07 lipid panel, serum 2024 025 [facility], [address] [place] [address], [place], [address], 11/06/2024 11:43:12 CBC 2024 025 [facility], [address] [place] [address], [address], 11/07/2024 12:13:07 TSH, serum or plasma 2024 025 [facility], [address] [place] [address], [address], 11/06/2024 11:34:11 PSA, serum or plasma 2024 025 [facility], [address] [place] [address], [address], 11/06/2024 11:43:13 TSH + free T4, serum 2023 024 [facility], [address] [place] [address], [address], 11/22/2023 11:25:47 Referral None recorded. Procedures None recorded. Surgeries None recorded. Imaging XR, forearm, 2 view 2024 025 [facility], [address] [place] [address], [address], 12/04/2024 11:45:34 XR, elbow, 2 view 2024 025 [facility], [address] [place] [address], [address], 12/04/2024 11:45:34 XR, wrist, 2 view 2024 025 [facility], [address] [place] [address], [address], 12/04/2024 11:45:34 US, echocardi ogram, transthor acic, complete, w/ color flow 2024 025 [facility], [address] [place], [address], 11/20/2024 08:18:19 Medication Orders buspirone 5 mg tablet 2022 023 [facility] #[id number], [address] [place], [address], 03/14/2023 09:38:29 triamcino lone acetonide 0.1 % topical cream 2022 023 [facility] #[id number], [address] [place], [address], 03/14/2023 09:41:00 Patient TargetsNo targets recorded. Patient Instructions Encounter Date Encounter Id Patient Instructions Last Modified By Organization Details Last Modified Time 03/14/2023 [id number] pulse oximetry* [email or web address] Not available 03/14/2023 09:38:26 11/06/2024 [id number] gout: care instructions Not available 11/06/2024 11:32:30 pulse oximetry* Not available 11/06/2024 11:32:30 Reason for Referral None Reported. Results Created Date Observation Date Name Description Value Unit Range Abnormal Flag Note LastModifiedBy Organization Detail LastModifiedTime 03/14/2003/14/2023 pulse oxime try* Result 99 Not Available [facility] [address] [place] [address], [place], [address], 03/09/2023 07:08:40 11/07/19 25 11/06/2024 pulse oxime try* Result 98 Not Available [facility] [address] [facility] [address], [place], [address], 10/30/2024 08:18:46 05/08/20 24 05/02/2024 colon oscop y proce dure (PROC ) No observ ation record ed. [email or web address] Not Available 2023 15:03:49 Result Notes None recorded. Problems Name Problem SNOMED Code Status Onset Date Resolution Date Notes Provider Name and Address Organization Details Recorded Time Gastroes ophageal reflux disease without esophagi tis 770295701 Active 2018 Not Available [facility] 3 18:19:55 Primary erectile dysfunct ion 557708257 Active 2018 Not Available [facility] 3 18:19:55 Benign prostati c hyperpla eligio 453689716 Active 2018 Not Available [facility] 3 18:19:55 Impacted cerumen of bilatera l ears 87310757925 71943 Active 2022 Not Available [facility] 3 18:19:55 Anemia 378385323 Active 2022 Not Available [facility] 3 18:19:55 Atrial fibrilla tion 36323155 Active 2022 Not Available [facility] 3 18:19:55 Cough 16305116 Active 2022 Not Available [facility] 3 18:19:55 Depressi ve disorder 80385075 Active 2022 Not Available [facility] 3 18:19:55 Skin lesion 15638382 Active 2022 Not Available [facility] 3 18:19:55 Acute on chronic diastoli c heart failure 643665188 Active 2024 Joselito Gerardo DO [address] [place], [address], [facility] 5 11:30:59 Acute COVID-19 7706190398 Active 2024 Joselito Gerardo DO [address] [place], [address], [facility] 5 14:34:40 Pain in right arm 816140691 Active 2024 NIECY TORRES [address] [place], [address], [facility] 5 11:42:05 Mixed hyperlip idemia 382152967 Active 2024 NIECY TORRES [address] [place], [address], [facility] 5 11:47:14 Essentia l hyperten tatianna 42608703 Active 2017 Not Available [facility] 3 18:19:55 Osteoart hritis 519163755 Active 2017 with knee replaceme nt 2011 Not Available [facility] 3 18:19:55 Umbilica l hernia 032798197 Active 2017 Not Available [facility] 3 18:19:55 Sensorin eural hearing loss 37807674 Active 2017 Not Available [facility] 3 18:19:55 Atherosc lerosis Active 2017 Not Available [facility] 3 18:19:55 Gout 72091356 Active 2017 Not Available [facility] 3 18:19:55 Notes:Mild thrombocytopenia Problem Notes None recorded. Procedures Surgical History Date Name Laterality Status Provider Name and Address Organization Details Recorded Time 05/15/20 24 Cerumen Removal completed NIECY TORRES [address] [place], [address], [facility] 05/15/2024 09:49:45 01/04/20 23 Cerumen Removal completed NIECY TORRES [address] [place], [address], [facility] 01/03/2023 11:05:04 08/13/19 23 Cerumen Removal completed NIECY TORRES [address] [place], [address], [facility] 08/13/2022 14:51:11 09/08/19 22 Cerumen Removal completed NIECY TORRES [address] [place], [address], [facility] 09/08/2021 10:03:53 07/11/20 20 Cerumen Removal completed NIECY TORRES [address] [place], [address], [facility] 07/11/2020 14:33:05 11/26/19 20 Cerumen Removal completed [facility] [address] [place], [address], [facility] 11/26/2019 10:51:01 12/14/19 19 Cerumen Removal completed [facility] [address], [address], [facility] 12/13/2018 10:00:14 12/07/19 19 colonoscopy completed Joselito Gerardo, [address], [address], [facility] 12/08/2018 10:52:46 01/05/20 18 Cerumen Removal completed [facility] [address], [address], [facility] 01/04/2018 14:20:19 Imaging Results Imaging Date Name Status LastModified by Organiz ation Details LastModified Time 05/02/2024 colonoscopy procedure (PROC) completed [email or web address] Information [...] Not Available azithromyci n 250 mg tablet TAKE 2 TABLETS BY MOUTH TODAY, THEN TAKE 1 TABLET DAILY FOR 4 DAYS DIRECTED active Not Available Not Available No t Available diltiazem CD 180 mg capsule,ext ended [...] DAYS WITH FOOD AND GLASS OF WATER. 09/19 /2022 completed Not Available Not Available Not Available [...] t Available Farxiga 10 mg tablet TAKE 1 TABLET DAILY active [...] Updated DateTime 3 170.18 cm 30.5 kg/m2 16855.0 8 g 85 /min 97 % 97 % 94 mm[Hg] 58 mm[Hg] NIECY TORRES [address] [place], [address], [facility] 3 09:21:57 Date Recorded Body height Body mass index (BMI) Body weight Heart rate Oxygen saturation Oxygen saturation in Arterial blood by Pulse oximetry Systolic blood pressure Diastolic blood pressure Provider Name and Address Organization Details Last Updated DateTime 4 170.18 cm 30.4 kg/m2 74760.9 2 g 54 /min 98 % 98 % 118 mm[Hg] 70 mm[Hg] NIECY TORRES [address] [place], [address], [facility] 4 10:30:25 Date Recorded Body height Body mass index (BMI) Body weight Heart rate Oxygen saturation Oxygen saturation in Arterial blood by Pulse oximetry Systolic blood pressure Diastolic blood pressure Provider Name and Address Organization Details Last Updated DateTime 5 170.18 cm 30.4 kg/m2 82917.9 2 g 53 /min 98 % 98 % 130 mm[Hg] 78 mm[Hg] Giana Felix [facility] 5 11:07:25 Date Recorded Body height Provider Name an d Address Organization Details Last Updated DateTime 12/04/2024 170.18 cm Chrissy Tolliver [facility] 12/04/2024 11:33:19 Social History Question Answer Notes LastModified by [employer] Details LastModified Time Tobacco Smoking Status Former Smoker Not Available [facility] 05/27/2020 03:36:24 What Is Your Level Of Caffeine Consumption? Moderate 3 Cups Coffee Per Day [id number] Information not available 05/27/2020 What Was The Date Of Your Most Recent Tobacco Screening? 12/04/2024 [email or web address] Information not available 12/04/2024 How Many Years Have You Smoked Tobacco? 14 [id number] Information not available 05/27/2020 Sex: Unknown Functional Status Question Answer Note LastModified by [employer] Details LastModified Time Do you or have you ever used any other forms of tobacco or nicotine? No [email or web address] Information not available 01/03/2023 What is your level of alcohol consumption? Moderate 7-8 drinks per week [id number] Information not available 05/27/2020 What is your exercise level? Occasional golfing, gym 3 days per week [id number] Information not available 05/27/2020 Mental Status None recorded. Family History Nothing Reported. Medical History No medical history recorded. Immunizations Vaccine Type Date Status Note Provider Nam e and Address Organization Details Recorded Time COVID-19, mRNA, LNP-S, PF, 30 mcg/0.3 mL dose 04/30/2021 completed Not Available [facility] 3 18:19:56 COVID-19, mRNA, LNP-S, PF, 30 mcg/0.3 mL dose 09/05/2020 completed Not Available [facility] 3 18:19:56 COVID-19, mRNA, LNP-S, PF, 30 mcg/0.3 mL dose 08/29/2020 completed Not Available [facility] 3 18:19:56 Tdap 07/30/2015 completed Not Available [facility] 04/25/2023 18:19:56 Past Encounters Encounter ID Performer Location Encounter Start Date Encounter Closed Date Diagnosis/Indication Diagnosis SNOMED-CT Code Diagnosis ICD10 Code Diagnosis Note [id number] Joselito Gerardo DO [facility] [address] [facility],[place] [address] 01/04/2018 13:43:21 01/04/2018 14:30:50 Impacted cerumen 24683730 H61.23 successful f/u as needed Essential hypertension 78879816 I10 good today on current regimen Gout 25273284 M10.9 stable on allopurino l [id number] Joselito Gerardo DO [facility] [address] [facility], [place] [address] 01/30/2018 10:39:30 01/30/2018 11:52:01 Essential hypertension 22594048 I10 stable doing well no major issues Gastroesop hageal reflux disease 060251399 K21.9 Gout 24502684 M10.9 alsquiet no isssues whiler on allopurino l; [id number] Joselito Gerardo [facility] [address] [facility],[place] [facility] [place] [facility] [place] [address] 08/02/2018 08:58:58 08/02/2018 19:30:21 Essential hypertension 91042384 I10 stable doing well no major issues Gout 05980144 M10.9 doing well with no issues and [...] quiet no isssues whiler on allopurino l; [id number] Joselito Benavidezallison [facility] [address] [facility],[place] [address] 09/01/2018 11:56:51 09/01/2018 13:03:32 Left inguinal hernia 595070833 K40.90 will refer for a opinion from general surgeon he will be going to [place] in September so any procedure will have to be done in october Joselito VivarShikha Gerardo [facility] [address] [facility],[place] [address] 10/31/2018 11:28:29 10/31/2018 13:42:24 Cough 15332772 R05 Essential hypertension 93954318 I10 stable [id number] Joselito Benavidezallison [facility] [address] [facility],[place] [address] 12/13/2018 09:27:45 12/13/2018 09:59:20 Gout 20386582 M10.9 stable on allopurino l Essential hypertension 50270141 I10 good today on current regimen Gastroesop hageal reflux disease without esophagitis 521838920 K21.9 QUIET Impacted c erumen of bilateral ears 3178848015 091795 H61.23 RESOLVED Decreased hearing 211553 001 H91.93 GREATLY IMPROVED [id number] Joselito Gerardo [facility] [address] [facility] [place] [address] 04/17/2019 10:55:05 04/17/2019 11:48:57 Adult health examination 955159673 Z00.00 doing well Active or passive immunization 857636737 Z23 [id number] Joselito Gerardo [facility] [address] [facility] [place] [address] 07/30/2019 10:00:52 07/30/2019 10:49:35 Nocturnal muscle cramp 0623282462 21187 G47.62 R gastrocnem ius muscle ongoing for 1 mo nightly Will try 400 mg mag and try to hydrate/st retching more throughout day Osteoarthritis 364925415 M19.90 Currently well managed - going to gym regularly Essential hypertension 09732935 I10 stable doing well no major issues One possible hypotensiv e episode Will call if this recurs and make sure to hydrate [id number] Joselito Gerardo [facility] [address] [facility] [place] [address] 09/05/2019 08:57:38 09/05/2019 10:05:37 Restless legs 99513713 G25.81 Is much improved with mag Will restart mag if sx return Anemia 182561414 D64.9 Found on repeat CBC Will check iron and B-12 Given occult stool cards and will recheck [id number] Joselito Gerardo DO [facility] [address] [facility] [place] [address] 09/11/2019 10:33:52 09/11/2019 11:16:00 Anemia 559803435 D64.9 Found on repeat CBC Will check iron and B-12 Given occult stool cards and will recheck [id number] Joselito Gerardo [facility] [address] [facility] [place] [address] 09/19/2019 10:58:06 09/19/2019 11:41:53 Essential hypertension 07603631 I10 elevated will increase losartan continue atenolol 25 mg 1/2 tablet recheck BP in november 06 Gout 36899994 M10.9 stable on allopurino l Gastroesop hageal reflux disease without esophagitis 752712269 K21.9 QUIET Osteoarthritis 200932064 M19.90 takes aleve daily for the last 20-30 years try to take once a day or less frequently if able or as needed Infected insect bite 262 999753 L08.9 [id number] Joselito Gerardo [facility] [address] [facility],[place] [address] 11/07/2019 09:14:11 11/07/2019 11:42:51 Essential hypertension 82850787 I10 stable doing well no major issues One possible hypotensiv e episode Will call if this recurs and make sure to hydrate Gout 41605133 M10.9 doing well with no issues and [...] no issues while on allopurino l; Atherosclerosis 14024664 I70.90 quiet and is doing well Gastroesop hageal reflux disease without esophagitis 148942348 K21.9 quiet and is doing well with omeprazole [id number] Joselito Gerardo [facility] [address] [facility],[place] [address] 11/26/2019 10:13:17 11/26/2019 11:03:36 Impacted cerumen of bilateral ears 0538687609 115386 H61.23 RESOLVED AFTER IRRIGATION Decreased hearing 172639 001 H91.93 GREATLY IMPROVED AFTER IRRIGATION Essential hypertension 79725776 I10 well controlled Sensorineu ral hearing loss 29950492 H90.5 in left [id number] Joselito Gerardo [facility] [address] [facility],[place] [address] 11/30/2019 09:58:33 11/30/2019 11:00:20 Essential hypertension 92107620 I10 stable doing well no major issues One possible hypotensiv e episode Will call if this recurs and make sure to hydrate Degenerati ve lumbar spinal stenosis 012431061 M48.061 with a radicuopat hy to the level of his calf prob L4-5 level [id number] Joselito Gerardo [facility] [address] [facility],[place] [address] 12/19/2019 10:13:25 12/19/2019 10:46:08 Dyspnea on exertion 51377556 R06.09 i believe this is due to thaddeus guerra as noted will be seeing dr hinds next week weds. will defer to him re whether we eval with ETT or card perfusion etc Lightheadedness 65695542 8 R42 occurs when getting up quickly otherwise doesnt bother will cont to hold and use lower dose with 50mg Degenerati on of lumbosacral intervertebral disc 31073415 M51.37 awaiting MRI [id number] Joselito Gerardo [facility] [address] [facility],[place] [address] 01/14/2020 15:29:24 01/14/2020 16:18:15 Spinal stenosis of lumbar region 03937125 M48.061 stable > will f/u as needed Degenerati on of lumbar intervertebral disc 82071122 M51.36 stable [id number] Joselito Gerardo [facility] [address] [facility],[place] [address] 02/06/2020 12:12:08 02/06/2020 13:28:14 Essential hypertension 13938104 I10 stable doing well no major issues Osteoarthritis 976377003 M19.90 Back OA has been worse last week with pain radiating into R LE MRI showed increased foramen stenosis and anterolist hesis Will refer to Dr. Hinton Treat with Pred taper [id number] Joselito Gerardo [facility] [address] [facility],[place] [address] 07/11/2020 14:12:45 07/11/2020 15:02:25 Impacted cerumen 94147309 H61.23 procedure went well will fu if he starts to notice issue again if fluid still a concern, try OTC antihistam ine Essential hypertension 09896875 I10 BP fine today [id number] Joselito Gerardo [facility] [address] [facility],[place] [address] 07/28/2020 09:13:33 07/28/2020 13:52:07 Epidermoid cyst of skin 453098345 L72.3 the patient has a cyst/boil on his left ear will start with abx and recall for fu on tuesday or tuesday if no improvemen t will drain Toothache 45710925 K08.8 9 will have patient call his dentist for possible infection of upper right molars Essential hypertension 20316120 I10 BP elevated, [place] [id number] Joselito Gerardo [facility] [address] [facility],[place] [address] 08/05/2020 08:09:04 08/05/2020 12:00:26 Dental abscess 759509937 K04.7 following up with dental, abx he was on through did help Epidermoid cyst of skin 739955004 L72.3 will fu with us if derm is not able to do it or not able to do it in a timely manner [id number] Joselito Gerardo [facility] [address] [facility], [place] [address] 08/26/2020 10:04:55 08/26/2020 14:14:27 Essential hypertension 26275176 I10 stable doing well no major issues Gastroesop hageal reflux disease without esophagitis 026958437 K21.9 quiet and is doing well with omeprazole Umbilical hernia 8738099 07 K42.9 will undergo surg repair this week Gout 30696814 M10.9 doing well with no issues and no bouts of attacksnee d uric acids disabled : , root : null, macros : null, albert k : , can_dicta te : , hidden : { classes : note unstructur ed-goal }, placehold er_element : null, placehold er_text : Add note , input : null, maxlength : , hardlimit : , hidecount : , value : } data-spell check= class= adilson h-text-con tainer autostart expanding- textarea rich-text- container note-field -wrapper > quiet no issues while on allopurino l; [id number] Joselito Gerardo [facility] [address] [facility],[place] [address] 10/29/2020 10:12:20 10/29/2020 11:32:01 Essential hypertension 73155459 I10 stable doing well no major issues Sensorineu ral hearing loss 24819071 H90.5 will need and exam Urgent joe belén for stool 11328968 R15.2 possible reaction to diltiazem we will change the med to amlodipine and wait for input [id number] Joselito Gerardo [facility] [address] [facility], [place] [address] 11/19/2020 14:24:49 11/19/2020 15:09:01 Essential hypertension 12575169 I10 stable doing well no major issues Vertigo 878747496 R42 note he needs a new glasses as the ones he was given were wrong and eye dr felt that this was the prob reason Atherosclerosis 30110453 I70.90 quiet and is doing well Gout 87032696 M10.9 doing well with no issues and no bouts of attacks need uric acids Primary er ectile dysfunction 617592000 N52.9 [id number] Joselito Gerardo [facility] [address] [facility],[place] [address] 12/02/2020 09:28:23 12/02/2020 10:58:13 Active or passive immunization 338101656 Z23 utd Adult heal th examination 563347511 Z00.00 doing well no major issues and is quite active [id number] Joselito Gerardo [facility] [address] [facility],[place] [address] 04/24/2021 09:20:41 04/24/2021 14:57:28 Exposure to SARS-CoV-2 537029918 Z20.822 will fu with order for testing at [facility] [id number] Joselito Gerardo DO [facility] [address] [facility] [place], [place] [facility] [address] 07/07/2021 08:09:31 07/07/2021 09:53:15 Essential hypertension 87096896 I10 has had musltiple med changes and now on nifedipine , spironolac t, losartan and his sbp is running in the low 90's i recc he cut the losartan in half and he states he will talk to cardiology firsttold him to get back to [facility] had lab done 1 week ago and asked him to have cardio send to us. Atherosclerosis 16404228 I70.90 quiet and is doing well [id number] Joselito Gerardo [facility] [address] [facility], [place] [facility] [address] 09/08/2021 09:24:27 09/08/2021 10:27:58 Impacted cerumen 03593543 H61.23 procedure went well will fu if he starts to notice issue again [id number] Joselito Gerardo [facility] [address] [facility] [address] [place] [address] 04/12/2022 10:57:46 04/12/2022 12:32:32 Active or passive immunization 463907973 Z23 utd Adult heal th examination 797257833 Z00.00 doing well no major issues and is quite active Essential hypertension 79388757 I10 has had multiple med changes and now on nifedipine , spironolac t, losartan and his sbp is running in the low 90's i recc he cut the losartan in half and he states he will talk to cardiology firsttold him to get back to [facility] had lab done 1 week ago and asked him to have cardio send to us. Gastroesop hageal reflux disease without esophagitis [id number] K21.9 quiet and is doing well with omeprazole Gout 48549801 M10.9 doing well with no issues and no bouts of attacks need uric acids Sensorineu ral hearing loss 08782126 H90.5 will need and exam Atherosclerosis 55790127 I70.90 quiet and is doing well [id number] Joselito Gerardo DO [facility] [address] [facility] [address] [address] 08/13/2022 14:27:07 08/13/2022 15:23:33 Essential hypertension 04265114 I10 will set up standing Impacted c erumen of bilateral ears [id number] 612896 H61.23 resolved with lavage [id number] Joselito Gerardo DO [facility] [address] [facility] [address],[place] [address] 01/03/2023 10:26:14 01/03/2023 11:17:48 Impacted cerumen of bilateral ears [id number] 167602 H61.23 resolved with lavage [id number] Joselito Gerardo DO [facility] [address] [facility] on [address] [address] 01/31/2023 11:11:37 01/31/2023 11:59:46 Anemia 887029353 D64.9 Found on repeat CBCbut has been [...] feeling better . Advance care planning 71 6368865 Z71.89 utd Cough 50589222 R05.9 unsure if this is medication related but is certainly present throughout the dayposs allergy? ears feel plugged too Essential hypertension 81472005 I10 he is clearly having orthostati c symptoms and is on 4 bp meds this will need to be adjusted if the cardiol does not [id number] Joselito Gerardo DO [facility] [address] [facility] [address],[place] [address] 03/14/2023 09:16:33 03/14/2023 09:57:40 Atrial fibrillation 62159498 I48.0 stable Gastroesop hageal reflux disease without esophagitis 562587998 K21.9 stable Depressive disorder 3548 9007 F32.0 start on low dose busparsafe for heart Skin lesion 36569469 L98 .9 will set up with triamcinol one for two lesions on the skin [id number] Joselito Gerardo [facility] [address] [facility] [address] [address] 11/21/2023 10:25:05 11/21/2023 16:02:39 Long-term current use of amiodarone 8666187334 76095 Z79.899 agreed to TSH check since he has been on amiodarone Depressive disorder 3548 9007 F32.0 stable Atrial fibrillation 4943 6004 I48.0 I48.91 stablehad conversion ; hasn't had any issues Essential hypertension 65547852 I10 will set up standing Gout 41577793 M10.00 stable [id number] [facility] [address] [facility] [address] [address] 05/15/2024 09:26:20 05/15/2024 14:22:45 Impacted cerumen of bilateral ears [id number] 915463 H61.23 resolved with lavage [id number] [facility] [address] [facility] [address] 11/06/2024 10:58:30 11/06/2024 13:47:59 Active or passive immunization 293155918 Z23 utd Adult heal th examination 745675287 Z00.00 doing well no major issues and [...] disorder 3548 9007 F32.0 negative Essential hypertension 71195829 I10 stable and occ has some lightheade dness can occur usually in the afternoon Gout 62471270 M10.00 doing well with no issues and no bouts of attacks need uric acids Acute on c hronic diastolic heart failure 559686256 I50.33 stable an no issues [id number] Joselito Gerardo, [facility] [address] [facility] [address],[place] [address] 12/04/2024 11:29:31 12/04/2024 11:53:37 Pain in right arm 647254779 M79.601 will set up with XRs R side Fall W19.XXXA caught himself on the right arm when he fell, ? tear vs fx Atrial fibrillation 4943 6004 I48.0 I48.91 stablehad conversion ; hasn't had any issues Essential hypertension 27234340 I10 will set up standing Mixed hyperlipidemia 267 150144 E78.2 Health Concerns Section Related Observation LastModified by Organization Detai ls LastModified Time None Recorded Concern Status LastModified by Organization Details LastModified Time None Recorded Advance Directives Directive None Recorded Payers Encounter Date Sequence Insurance Name Policy Number Policy Hazel Covered Member ID Hazel Member ID Guarantor Name 03/14/2023 1 [place] [id number] Bowen Martin [id number] Bowen Martin 11/21/2023 1 [place] [id number] Bowen Martin [id number] Bowen Martin 05/15/2024 1 [place] [id number] Bowen Martin [id number] Bowen Martin 11/06/2024 1 [place] [id number] Bowen Martin [id number] Bowen Martin 12/04/2024 1 [place] [id number] Bowen Martin [id number] Bowen Martin Notes Date Note Type Note Provider Name and Address Organization Details Recorded Time 3 text/htm l Medicare Annual Wellness VisitReported [...] the eliquisno side effects NIECY TORRES [address] [place], [address], [facility] 03/14/2023 09:51:08 4 text/htm l [...] depression: stable gout: stable NIECY TORRES [address] [place], [address], [facility] 11/21/2023 11:05:15 4 text/htm l ear lavage the patient is doing wellbilateral ear lavagemild impactiontolerated procedure wellTMs visualized NIECY TORRES [address] [place], [address], [facility] 05/15/2024 09:50:18 5 text/htm l [...] no confusion; no headaches; no fatigue Joselito Gerardo DO [address] [place], [address], [facility] 11/06/2024 11:35:22 5 text/htm l c/o right forearm swelling the patient reports he fell on his R forearmthe patient reports he didn't notice any sig pain and dysfunction immediatelythen developed soft tissue swelling throughout the forearmno pitting edema, no loss of ROM but there is notable swelling throughoutpt is L hand dominantno pain or tenderness with palpationno numbness or tingling ?soft tissue injury vs tendon sprain/tear vs occult fx given orders for XR switched orders from cardio so he could have it done at out lab NIECY TORRES [address] [place], [address], [facility] 12/04/2024 11:53:36
[2024-12-04 14:14] LABS: Alanine Aminotransferase 13 U/L (0-40); Albumin Level 3.6 g/dL (3.5-5.0); Alkaline Phosphatase 86 U/L (39-117); Anion Gap 14 (12-20); Aspartate Amino Transferase 33 U/L (5-37); Bilirubin Total 0.8 mg/dL (0.0-1.0); Blood Urea Nitrogen 27 mg/dL (9-16); Calcium 9.2 mg/dL (8.4-10.2); Carbon Dioxide 21 mmol/L (22-29); Chloride 102 mmol/L (96-108); Cholesterol 165 mg/dL (<200); Estimated Glomerular Filt Rate 56; Glucose Random 80 mg/dL (60-115); HDL Cholesterol 59 mg/dL (>40); LDL Cholesterol Calculated 96 mg/dL (<100); Potassium 4.8 mmol/L (3.3-5.1); Sodium 132 mmol/L (135-145); Total Protein 6.4 g/dL (6.5-8.0); Triglycerides 52 mg/dL (<150)
== END 2024-12-04 11:54 | disposition home or self-care (01) ==
LOC: HO.MANLDS 11:53
PROVIDERS: Visit Provider Physician Assistant
DX: I48.0 Paroxysmal atrial fibrillation (principal); E78.2 Mixed hyperlipidemia
CPT/HCPCS: 36415; 80053; 80061; 85025

== ENCOUNTER 2025-05-15 10:04 | Outpatient (REF) | payer MEDICARE, SELFPAY ==
[2025-05-15 13:00] LABS: MANUAL DIFF FLAG NO
[2025-05-15 13:18] LABS: Hematocrit 43.7 % (42.0-52.0); Hemoglobin 14.7 g/dl (14.0-18.0); Imm Gran Abs Auto 0.01 X10*3/uL (0.00-0.03); Imm Gran Pct Auto 0.2 % (0.0-0.4); Lymphocytes Absolute Auto 1.3 X10*3/uL (1.2-4.9); Mean Corpuscular HGB Conc 33.6 g/dl (31.0-36.0); Mean Corpuscular Hemoglobin 31.6 pg (27.0-33.0); Mean Corpuscular Volume 94.0 fL (80.0-98.0); NRBC Abs Auto 0.000 X10*3/uL (0.0-0.012); NRBC Pct Auto 0.0 /100WBC (0.0-0.2); Platelet Count 169 X10*3/uL (160-400); Red Blood Count 4.65 X10*6/uL (4.60-5.80); White Blood Count 5.7 X10*3/uL (4.8-10.8)
[2025-05-15 13:52] LABS: NT Pro B Type Natriuretic Pept 2695.3 pg/mL (<300)
[2025-05-15 14:09] LABS: Alanine Aminotransferase 20 U/L (0-40); Albumin Level 3.6 g/dL (3.5-5.0); Alkaline Phosphatase 67 U/L (39-117); Anion Gap 8 (12-20); Aspartate Amino Transferase 34 U/L (5-37); Blood Urea Nitrogen 35 mg/dL (9-16); Calcium 9.4 mg/dL (8.4-10.2); Carbon Dioxide 25 mmol/L (22-29); Chloride 109 mmol/L (96-108); Estimated Glomerular Filt Rate 34; Iron 127 mcg/dL (45-160); Percent Iron Saturation 62 % (15-50); Potassium 4.5 mmol/L (3.3-5.1); Sodium 137 mmol/L (135-145); Total Iron Binding Capacity 205 mcg/dL (228-428); Total Protein 6.1 g/dL (6.5-8.0); Unsaturated Iron Binding 78 ug/dL
[2025-05-15 14:10] LABS: Vitamin B12 826 pg/mL (200-900)
[2025-05-15 14:26] LABS: Ferritin 233 ng/mL (20-250); Thyroid Stimulating Hormone 2.92 uIU/mL (0.32-4.0)
[2025-05-16 19:18] LABS: Prot Elec - Albumin 3.6 g/dL (3.8-4.8); Prot Elec - Alpha1 0.2 g/dL (0.2-0.3); Prot Elec - Alpha2 0.5 g/dL (0.5-0.9); Prot Elec - Beta 1 0.4 g/dL (0.4-0.6); Prot Elec - Beta 2 0.3 g/dL (0.2-0.5); Prot Elec - Gamma 0.9 g/dL (0.8-1.7); Prot Elec - Total Protein 5.8 g/dL (6.1-8.1)
== END 2025-05-15 10:05 | disposition home or self-care (01) ==
LOC: HO.MANLDS 10:04
PROVIDERS: Visit Provider Internal Medicine
DX: E85.82 Wild-type transthyretin-related (ATTR) amyloidosis (principal); R53.82 Chronic fatigue, unspecified
CPT/HCPCS: 36415; 80053; 82607; 82728; 82784; 83540; 83880; 84165; 84443; 85025